=== PATIENT | male | born 1955 | race Caucasian/White ===

== ENCOUNTER 2017-04-27 07:06 | Day surgery (SDC) | payer OTHER ==
[~2017-04-27] VITALS: Ht 188 cm; Wt 90.7 kg
[2017-04-27] MEDS ORDERED: SIMETHICONE 40 MG/0.6 ML ML ONE (07:21)
[2017-04-27] MEDS: MIDAZOLAM HCL 5 MG/5 ML VIAL ONE ×5 (08:10→08:18)
[2017-04-27] MEDS: fentaNYL CITRATE/PF 100 MCG/2 ML AMP ONE ×3 (08:10→08:14)
[2017-04-27] MEDS ORDERED: fentaNYL CITRATE/PF 100 MCG/2 ML AMP ONE (08:32)
[2017-04-27] MEDS ORDERED: DIPHENHYDRAMINE INJ 50 MG/ML VIAL ONE (08:59)
[2017-04-27 12:47] VITALS: BP_SYST 121
== END 2017-04-27 10:40 | disposition home or self-care (01) ==
LOC: SGI 07:06 → SMU 07:07 → SGI 10:40
PROVIDERS: ATTEND Internal Medicine
DX: D12.8 Benign neoplasm of rectum (principal); K29.70 Gastritis, unspecified, without bleeding; K21.9 Gastro-esophageal reflux disease without esophagitis; R63.4 Abnormal weight loss; K52.9 Noninfective gastroenteritis and colitis, unspecified; K64.8 Other hemorrhoids; F17.200 Nicotine dependence, unspecified, uncomplicated; K57.30 Diverticulosis of large intestine without perforation or abscess without bleeding
CPT/HCPCS: 36415; 43239; 45380; 87081; 88305; 88312; 88313; J1200; J2250; J3010; J7030